=== PATIENT | male | born 1940 | race Caucasian/White ===

== ENCOUNTER 2016-12-13 13:17 | Emergency (ER) | payer OTHER ==
[2016-12-13] MEDS ORDERED: IPRATROPIUM/ALBUTEROL 3 ML VIAL NEB ONE ×2 (13:32→14:59)
[2016-12-13 13:34] VITALS: TEMP 99.4
--- NOTE | 2016-12-13 14:35 | RAD ---
Study: Frontal and Lateral Views of the Chest. Indication: sob Comparison: January 25, 2016. Impression: Heart size normal. Atherosclerosis aorta. Mild basilar atelectasis. Emphysema. 7 mm pulmonary nodule in the right upper lung. Correlation with nonemergent CT chest recommended. No pleural effusion or pneumothorax. Osteopenia. If this is a new finding, DEXA scan recommended as well as evaluation for possible osteoporosis treatment. Electronically signed by: Wenceslao Rivas MD 12/13/2016 2:34 PM CDT
--- NOTE | 2016-12-13 15:56 | US ---
Study: Left lower extremity venous Doppler sonogram. Indication: sob, new le edema Technical: Multiplanar grayscale and Doppler sonographic images of the deep veins of the left lower extremity obtained. Findings: There is no sonographic evidence of deep venous thrombosis. The deep veins of the left lower extremity compress normally and have appropriate duplex waveforms. Normal flow augmentation is noted as well. Conclusion: 1. No sonographic evidence of deep venous thrombosis of the left lower extremity. Electronically signed by: Wenceslao Rivas MD 12/13/2016 3:56 PM CDT
--- NOTE | 2016-12-13 15:56 | US ---
Study: Right lower extremity venous Doppler sonogram. Indication: sob, new le edema Technical: Multiplanar grayscale and Doppler sonographic images of the deep veins of the right lower extremity obtained. Findings: There is no sonographic evidence of deep venous thrombosis. The deep veins of the right lower extremity compress normally and have appropriate duplex waveforms. Normal flow augmentation is noted as well. Small 3.7 cm popliteal cyst noted. Conclusion: No sonographic evidence of deep venous thrombosis of the right lower extremity. Electronically signed by: Wenceslao Rivas MD 12/13/2016 3:55 PM CDT
--- NOTE | 2016-12-13 17:08 | ED.PDOC ---
History of Present Illness - General Chief Complaint: Respiratory Problem Stated Complaint: shortness of breath Time Seen by Provider: 12/13/16 13:23 Source: patient, family Exam Limitations: no limitations - History of Present Illness Initial Comments: The patient is a 76-year-old male presenting to the emergency room secondary to shortness of breath for the last 24 hours. The patient does have some audible wheezes bilaterally. He does have COPD. He also has sleep apnea which is not wearing his BiPAP. He does have some increased swelling to his right lower extremity over the last couple of days. His daughter is here to give additional information. He has not had any fevers. He is 97% on room air while awake. No respiratory distress currently. No chest pain. Timing/Duration: 24 hours Severity: moderate Improving Factors: nothing Worsening Factors: nothing Associated Symptoms: malaise, shortness of breath Allergies/Adverse Reactions: Allergies Morphine Allergy (Verified 12/13/16 13:31) only IV form causes adverse reaction, increased confusion Home Medications: Ambulatory Orders Aspirin [Aspirin EC Low Dose] 81 mg PO BEDTIME 01/24/16 Cholecalciferol [Vitamin D3] 1,000 unit PO BEDTIME 01/24/16 Furosemide Tab [Lasix Tab] 40 mg PO DAILY 01/24/16 Gabapentin [Neurontin] 300 mg PO TID 01/24/16 Multiple Vitamins W/ Minerals [Mens 50+ Advanced] 1 cap PO BEDTIME 01/24/16 Potassium Chloride [Potassium Chloride ER] 10 meq PO DAILY 01/24/16 Ropinirole Hydrochloride [Requip] 1 mg PO BEDTIME 01/24/16 Morphine Sulfate [Ms Contin] 15 mg PO BID #30 tab 01/25/16 Tamsulosin HCl [Flomax] 0.4 mg PO BEDTIME #30 cap 01/25/16 Duoneb 1 each INH Q6H PRN 12/13/16 Oxycodone HCl 10 mg PO QID PRN 12/13/16 Review of Systems - Review of Systems Review of Systems: 12/13/16 17:08 for new symptoms only Constitutional: States: no symptoms reported EENTM: States: no symptoms reported Respiratory: States: cough, short of breath, wheezing Cardiology: States: no symptoms reported Gastrointestinal/Abdominal: States: no symptoms reported Genitourinary: States: no symptoms reported Musculoskeletal: States: no symptoms reported Skin: States: no symptoms reported Neurological: States: no symptoms reported Endocrine: States: no symptoms reported All other Systems: No Change from Baseline Past Medical History (General) - Patient Medical History Hx Stroke: No Hx of COPD: Yes Hx Congestive Heart Failure: No Hx Pacemaker: No Hx Hypertension: Yes Hx Diabetes: No Hx Cancer: Yes - prostate Hx Hepatitis C: No Hx MRSA: No Surgical History: other - Vaccination History Hx Tetanus, Diphtheria Vaccination: No Hx Influenza Vaccination: Yes - 2015 Hx Pneumococcal Vaccination: Yes - Social History Hx Tobacco Use: Yes Cigarettes Packs Per Day: 2 Hx Chewing Tobacco Use: Yes Hx Alcohol Use: Yes - daily Hx Substance Use: No Hx Substance Use Treatment: No Hx Depression: No Hx Physical Abuse: No Hx Emotional Abuse: No Hx Suspected Abuse: No - Activities of Daily Living Hospice Agency (if applicable):: None - Female History Patient is a Female of Child Bearing Age (10 -59 yrs old): No Patient : No Family Medical History - Family History Mother Family History: Unknown Living Status: Physical Exam - Physical Exam General Appearance: Alert, Comfortable, No apparent distress Eye Exam: bilateral normal Ears, Nose, Throat: normal ENT inspection, normal pharynx, other - hearing is chronically decreased bilaterally Neck: non-tender, other - the patient has significant scoliosis limited motion of the neck. Respiratory: chest non-tender, no respiratory distress, no accessory muscle use , wheezing - diffusewith mild decreased air movement Cardiovascular/Chest: normal peripheral pulses, regular rate, rhythm Peripheral Pulses: radial,right: 2+, radial,left: 2+, dorsalis pedis,right: 2+, dorsalis pedis,left: 2+, posterior tibialis,right: 2+, posterior tibialis,left: 2+ Gastrointestinal/Abdominal: non tender, soft Rectal Exam: deferred Back Exam: normal inspection, no CVA tenderness, no vertebral tenderness Extremity: normal range of motion, non-tender, pedal edema - . Right lower extremity 1+ Neurologic: portable trackman II-XII nml as tested, alert, normal mood/affect, oriented x 3 Skin Exam: normal color Comments: Vital Signs - 24 hr 12/13/16 12/13/16 12/13/16 13:22 13:31 13:57 Temperature 99.4 F Pulse Rate 64 Pulse Rate [ 65 pulse ox] Respiratory 20 20 16 Rate Blood Pressure 132/62 [Left Arm] O2 Sat by Pulse 97 95 Oximetry 12/13/16 12/13/16 15:00 15:40 Temperature Pulse Rate 67 Pulse Rate [ 57 L pulse ox] Respiratory 20 20 Rate Blood Pressure 144/74 [Left Arm] O2 Sat by Pulse 100 98 Oximetry Progress - Progress Progress: 12/13/16 17:12 the patient is a 76-year-old male presenting to the emergency room secondary to dyspnea. He appears to be a mild acute COPD exacerbation. Oxygen saturations are doing well. He has responded nicely to DuoNeb treatments. The patient should increase his DuoNeb treatments to one in the morning one midday and 1 before bed. Additionally the patient does need to start using his BiPAP for his obstructive sleep apnea. It is likely that the swelling that he is having in his extremities is due to his noncompliance. He may need to coordinate further management of this with his primary care doctor. ER warnings were given for any significant worsening. No evidence found to support acute infection at this time. He should follow-up with his primary care doctor early next week. - Results/Orders Results/Orders: Laboratory Tests 12/13/16 12/13/16 12/13/16 13:50 13:50 13:50 WBC 7.6 RBC 3.39 L Hgb 11.3 L Hct 33.7 L MCV 99.3 H MCH 33.3 H MCHC 33.5 RDW 13.4 Plt Count 342 MPV 7.0 L Absolute Neuts (auto) 4.80 Absolute Lymphs (auto) 1.20 Absolute Monos (auto) 1.10 H Absolute Eos (auto) 0.40 Absolute Basos (auto) 0.10 Neutrophils % 62.7 Lymphocytes % 16.4 L Monocytes % 14.2 H Eosinophils % 5.6 H Basophils % 1.1 PT 11.7 INR 1.040 PTT (SP) 26.7 D-Dimer, Quantitative 502 H* Sodium 131 L Potassium 4.0 Chloride 98 L Carbon Dioxide 25 Anion Gap 12.0 BUN 17 Creatinine 1.28 BUN/Creatinine Ratio 13.3 Random Glucose 106 H Serum Osmolality 264.6 L Calcium 9.2 Magnesium 2.0 Total Bilirubin 0.7 AST 22 ALT 13 Alkaline Phosphatase 59 Creatine Kinase 110 CK-MB (CK-2) 3.4 CK-MB (CK-2) % Not Reportable Troponin I < 0.02 B-Natriuretic Peptide 74.4 Serum Total Protein 6.5 Albumin 3.9 Globulin 2.6 Albumin/Globulin Ratio 1.5 TSH 0.65 Urine Color Urine Appearance Urine pH Ur Specific [place] Urine Protein Urine Glucose (UA) Urine Ketones Urine Blood Urine Nitrite Urine Bilirubin Urine Urobilinogen Ur Leukocyte Esterase Urine RBC Urine WBC Ur Epithelial Cells Urine Bacteria 12/13/16 16:31 WBC RBC Hgb Hct MCV MCH MCHC RDW Plt Count MPV Absolute Neuts (auto) Absolute Lymphs (auto) Absolute Monos (auto) Absolute Eos (auto) Absolute Basos (auto) Neutrophils % Lymphocytes % Monocytes % Eosinophils % Basophils % PT INR PTT (SP) D-Dimer, Quantitative Sodium Potassium Chloride Carbon Dioxide Anion Gap BUN Creatinine BUN/Creatinine Ratio Random Glucose Serum Osmolality Calcium Magnesium Total Bilirubin AST ALT Alkaline Phosphatase Creatine Kinase CK-MB (CK-2) CK-MB (CK-2) % Troponin I B-Natriuretic Peptide Serum Total Protein Albumin Globulin Albumin/Globulin Ratio TSH Urine Color Yellow Urine Appearance Clear Urine pH 6.0 Ur Specific [place] 1.010 Urine Protein Negative Urine Glucose (UA) Negative Urine Ketones Negative Urine Blood Trace-intact H Urine Nitrite Negative Urine Bilirubin Negative Urine Urobilinogen 0.2 Ur Leukocyte Esterase Negative Urine RBC 0-1 Urine WBC 0 Ur Epithelial Cells 0 Urine Bacteria 0 bilateral lower extremity venous Dopplers are negative for any evidence of DVT. He does have a popliteal cyst. Chest x-ray shows some atelectasis on the right. No evidence of pneumonia or significant effusion. No evidence of overt fluid overload. EKG shows normal sinus rhythm with first-degree AV block. No acute ST segment changes worrisome for ischemia. Heart rate is 61 bpm. Normal QTc interval. Departure - Departure Clinical Impression: Acute bronchitis with COPD, Noncompliance with CPAP treatment Disposition: Discharge to Home or Self Care Condition: Fair Departure Forms: ED Discharge - Pt. Copy, Patient Portal Self Enrollment Instructions: DI for Chronic Obstructive Pulmonary Disease Diet: regular diet Activity: increase activity as tolerated Referrals: JESUS PATEL [Primary Care Provider] - 1-5 Days Home Medications: Ambulatory Orders Aspirin [Aspirin EC Low Dose] 81 mg PO BEDTIME 01/24/16 Cholecalciferol [Vitamin D3] 1,000 unit PO BEDTIME 01/24/16 Furosemide Tab [Lasix Tab] 40 mg PO DAILY 01/24/16 Gabapentin [Neurontin] 300 mg PO TID 01/24/16 Multiple Vitamins W/ Minerals [Mens 50+ Advanced] 1 cap PO BEDTIME 01/24/16 Potassium Chloride [Potassium Chloride ER] 10 meq PO DAILY 01/24/16 Ropinirole Hydrochloride [Requip] 1 mg PO BEDTIME 01/24/16 Morphine Sulfate [Ms Contin] 15 mg PO BID #30 tab 01/25/16 Tamsulosin HCl [Flomax] 0.4 mg PO BEDTIME #30 cap 01/25/16 Duoneb 1 each INH Q6H PRN 12/13/16 Oxycodone HCl 10 mg PO QID PRN 12/13/16 Additional Instructions: the patient is a 76-year-old male presenting to the emergency room secondary to dyspnea. He appears to be a mild acute COPD exacerbation. Oxygen saturations are doing well. He has responded nicely to DuoNeb treatments. The patient should increase his DuoNeb treatments to one in the morning one midday and 1 before bed. Additionally the patient does need to start using his BiPAP for his obstructive sleep apnea. It is likely that the swelling that he is having in his extremities is due to his noncompliance. He may need to coordinate further management of this with his primary care doctor. ER warnings were given for any significant worsening. No evidence found to support acute infection at this time. He should follow-up with his primary care doctor early next week.
[2016-12-13 17:31] VITALS: BP 143/64; O2SAT 95
== END 2016-12-13 17:31 | disposition home or self-care (01) ==
LOC: ER 13:17
DX: J44.0 Chronic obstructive pulmonary disease with (acute) lower respiratory infection (principal); J20.9 Acute bronchitis, unspecified; Z91.14 Patient's other noncompliance with medication regimen; G47.30 Sleep apnea, unspecified; Z88.6 Allergy status to analgesic agent; Z79.82 Long term (current) use of aspirin; Z79.899 Other long term (current) drug therapy; I10 Essential (primary) hypertension; Z85.46 Personal history of malignant neoplasm of prostate; F17.210 Nicotine dependence, cigarettes, uncomplicated; F17.220 Nicotine dependence, chewing tobacco, uncomplicated
CPT/HCPCS: 36415; 71020; 80053; 81001; 82550; 82553; 83735; 83880; 84443; 84484; 85025; 85379; 85610; 85730; 93005; 93971; 94640; J7620

== ENCOUNTER 2016-12-15 10:53 | Inpatient (IN) | payer OTHER ==
[2016-12-15] MEDS ORDERED: SODIUM CHLORIDE 0.9% 1000ML 1,000 ML IVS PRN (12:23)
[2016-12-15] MEDS ORDERED: fentaNYL CITRATE INJ 50 MCG/ML AMP IV ONE (12:26)
--- NOTE | 2016-12-15 12:30 | ED.PDOC ---
History of Present Illness - General Chief Complaint: General Stated Complaint: Increased weakness Time Seen by Provider: 12/15/16 12:08 Source: patient, family Exam Limitations: physical impairment - History of Present Illness Initial Comments: PT IS A 76 YO MALE BROUGHT IN BY FAMILY MEMBERS FOR GENERALIZED WEAKNESS AND WORSENING LOWER BACK PAIN. FAMILY ALSO REPORTS FEVER AND PRODUCTIVE COUGH FOR THE PAST FEW DAYS. PT WAS SEEN IN THIS ED A FEW DAYS AGO AND WAS DIAGNOSED WITH BRONCHITIS. PT HAS GOTTEN PROGRESSIVELY WEAKER SINCE THEN AND IS NOW UNABLE TO AMBULATE. PT NORMALLY IS AMBULATORY AND DRIVES. PT NOW COMPLAINS OF LOW BACK PAIN THAT IS MORE INTENSE THAN HIS CHRONIC BACK PAIN WHICH IS USUALLY CONTROLLED WITH PO MEDS AT HOME. Timing/Duration: getting worse Severity: severe Improving Factors: immobilization Worsening Factors: movement Associated Symptoms: cough, fever/chills, malaise, weakness, other - BACK PAIN Allergies/Adverse Reactions: Allergies Morphine Allergy (Verified 12/13/16 13:31) only IV form causes adverse reaction, increased confusion Home Medications: Ambulatory Orders Aspirin [Aspirin EC Low Dose] 81 mg PO BEDTIME 01/24/16 Cholecalciferol [Vitamin D3] 1,000 unit PO BEDTIME 01/24/16 Furosemide Tab [Lasix Tab] 40 mg PO DAILY 01/24/16 Gabapentin [Neurontin] 300 mg PO TID 01/24/16 Multiple Vitamins W/ Minerals [Mens 50+ Advanced] 1 cap PO BEDTIME 01/24/16 Potassium Chloride [Potassium Chloride ER] 10 meq PO DAILY 01/24/16 Ropinirole Hydrochloride [Requip] 1 mg PO BEDTIME 01/24/16 Morphine Sulfate [Ms Contin] 15 mg PO BID #30 tab 01/25/16 Tamsulosin HCl [Flomax] 0.4 mg PO BEDTIME #30 cap 01/25/16 Duoneb 1 each INH Q6H PRN 12/13/16 Oxycodone HCl 10 mg PO QID PRN 12/13/16 Review of Systems - Review of Systems Constitutional: Denies: chills, fever EENTM: Denies: nose congestion, throat pain Respiratory: States: see HPI, cough. Denies: short of breath Cardiology: Denies: chest pain, palpitations Gastrointestinal/Abdominal: Denies: abdominal pain, diarrhea, nausea Genitourinary: Denies: frequency, hematuria Musculoskeletal: States: see HPI, back pain, muscle pain Skin: Denies: lesions, rash Neurological: Denies: headache, paresthesia Endocrine: Denies: intolerance to cold, intolerance to heat Hematologic/Lymphatic: Denies: anemia, easy bleeding Past Medical History (General) - Patient Medical History Hx Stroke: No Hx of COPD: No Hx Congestive Heart Failure: No Hx Pacemaker: No Hx Hypertension: Yes Hx Diabetes: No Hx Cancer: Yes - prostate Hx Hepatitis C: No Hx MRSA: No - Vaccination History Hx Tetanus, Diphtheria Vaccination: No Hx Influenza Vaccination: Yes - 2015 Hx Pneumococcal Vaccination: Yes - Social History Hx Tobacco Use: Yes Hx Chewing Tobacco Use: Yes Hx Alcohol Use: Yes - daily Hx Substance Use: No Hx Substance Use Treatment: No Hx Depression: No Hx Physical Abuse: No Hx Emotional Abuse: No Hx Suspected Abuse: No - Female History Patient : No Family Medical History - Family History Mother Family History: Unknown Living Status: Physical Exam - Physical Exam General Appearance: Comfortable, Frail, No apparent distress, Other - SOMNOLENT BUT EASILY ARROUSED Eye Exam: bilateral normal Ears, Nose, Throat: hearing grossly normal, normal ENT inspection Neck: normal inspection Respiratory: no accessory muscle use, rhonchi Cardiovascular/Chest: regular rate, rhythm, no edema, no murmur Gastrointestinal/Abdominal: non tender, soft Back Exam: no vertebral tenderness, other - DIFFUSE LUMBAR TENDERNESS Extremity: normal inspection, no pedal edema Neurologic: normal mood/affect - CONFUSED AT TIMES, MOVING ALL EXTREMITIES, STRENGTH SYMETRIC Skin Exam: warm/dry, pallor Progress - Progress Progress: 12/15/16 14:09 PT RESTING COMFORTABLY AFTER IV FENTANYL, LABS AND CXR FINDINGS DISCUSSED. DISCUSSED PLAN TO ADMIT FOR IV FLUIDS, PAIN CONTROL, AND IV ANTIBIOTICS FOR RLL PNEUMONIA. PT UNDERSTANDS AND AGREES. - Results/Orders Results/Orders: 12/15/16 12:23 Sodium Chloride 0.9% 1000ML [Ns 1000 ml] 1,000 ml IVS .QD SPUTUM CULTURE Stat 12/15/16 12:24 EKG Assessment ONCE 12/15/16 12:25 Pulse Ox Stat 12/15/16 12:26 Pulse Oximetry Assessment DAILY 12/15/16 12:27 UA [URINALYSIS] Stat 12/15/16 12:30 EKG STAT 12/15/16 13:11 BLOOD CULTURE Stat 12/15/16 13:56 cefTRIAXone SODIUM [Rocephin] 1 gm Sodium Chl 0.9% 50Ml Min-Bag+ [NS 50ml MINI -BAG+] 50 ml IVPB ONCE 12/15/16 13:57 Azithromycin IV [Zithromax IV] 500 mg Sodium Chloride 0.9% 250Ml [NS 250ml] 250 ml IVPB ONCE Laboratory Results - last 24 hr 12/15/16 12/15/16 12/15/16 12:23 12:23 12:23 WBC 10.8 RBC 3.51 L Hgb 11.8 L Hct 34.9 L MCV 99.4 H MCH 33.6 H MCHC 33.8 RDW 13.5 Plt Count 329 MPV 7.5 Absolute Neuts (auto) 8.70 H Absolute Lymphs (auto) 0.90 L Absolute Monos (auto) 1.10 H Absolute Eos (auto) 0.10 Absolute Basos (auto) 0.10 Neutrophils % 79.9 H Lymphocytes % 8.2 L Monocytes % 10.0 H Eosinophils % 0.7 L Basophils % 1.2 pCO2 pO2 HCO3 ABG pH ABG O2 Saturation ABG Base Excess ABG Deoxyhemoglobin Oxyhemoglobin % Carboxyhemoglobin % Methemoglobin % Sat Calc Total Hemoglobin Sodium 134 L Potassium 4.2 Chloride 100 L Carbon Dioxide 24 Anion Gap 14.2 BUN 20 H Creatinine 1.32 H BUN/Creatinine Ratio 15.2 Random Glucose 106 H Serum Osmolality 271.3 L Lactic Acid 1.0 Calcium 9.4 Total Bilirubin 0.8 AST 21 ALT 14 Alkaline Phosphatase 70 Creatine Kinase CK-MB (CK-2) CK-MB (CK-2) % Troponin I B-Natriuretic Peptide 52.6 Serum Total Protein 6.9 Albumin 4.0 Globulin 2.9 Albumin/Globulin Ratio 1.4 12/15/16 12/15/16 12:26 13:40 WBC RBC Hgb Hct MCV MCH MCHC RDW Plt Count MPV Absolute Neuts (auto) Absolute Lymphs (auto) Absolute Monos (auto) Absolute Eos (auto) Absolute Basos (auto) Neutrophils % Lymphocytes % Monocytes % Eosinophils % Basophils % pCO2 31 L pO2 100 HCO3 23.2 ABG pH 7.490 H ABG O2 Saturation 99.3 H ABG Base Excess 0.7 ABG Deoxyhemoglobin 0.7 Oxyhemoglobin % 95.0 Carboxyhemoglobin % 2.6 H Methemoglobin % Sat 1.7 H Calc Total Hemoglobin 9.8 L Sodium Potassium Chloride Carbon Dioxide Anion Gap BUN Creatinine BUN/Creatinine Ratio Random Glucose Serum Osmolality Lactic Acid Calcium Total Bilirubin AST ALT Alkaline Phosphatase Creatine Kinase 83 CK-MB (CK-2) 1.8 CK-MB (CK-2) % Not Reportable Troponin I < 0.02 B-Natriuretic Peptide Serum Total Protein Albumin Globulin Albumin/Globulin Ratio Departure - Departure Clinical Impression: Pneumonia, Dehydration, Acute exacerbation of chronic low back pain, Generalized muscle weakness Time of Disposition: 14:11 Disposition: Admit Patient Condition: Fair Departure Forms: ED Discharge - Pt. Copy, Patient Portal Self Enrollment Referrals: JESUS PATEL [Primary Care Provider] - 1-2 Weeks Home Medications: Ambulatory Orders Aspirin [Aspirin EC Low Dose] 81 mg PO BEDTIME 01/24/16 Cholecalciferol [Vitamin D3] 1,000 unit PO BEDTIME 01/24/16 Furosemide Tab [Lasix Tab] 40 mg PO DAILY 01/24/16 Gabapentin [Neurontin] 300 mg PO TID 01/24/16 Multiple Vitamins W/ Minerals [Mens 50+ Advanced] 1 cap PO BEDTIME 01/24/16 Potassium Chloride [Potassium Chloride ER] 10 meq PO DAILY 01/24/16 Ropinirole Hydrochloride [Requip] 1 mg PO BEDTIME 01/24/16 Morphine Sulfate [Ms Contin] 15 mg PO BID #30 tab 01/25/16 Tamsulosin HCl [Flomax] 0.4 mg PO BEDTIME #30 cap 01/25/16 Duoneb 1 each INH Q6H PRN 12/13/16 Oxycodone HCl 10 mg PO QID PRN 12/13/16 Decision To Admit - Decistion To Admit Decision to Admit Reason: Admit from ER Decision to Admit Date: 12/15/16 Decision to Admit Time: 14:11
--- NOTE | 2016-12-15 12:45 | RAD ---
EXAM DESCRIPTION: Chest,1 View CLINICAL HISTORY: COUGH/FEVER COMPARISON: December 13, 2016 IMPRESSION: Single AP portable upright view of the chest shows cardiac silhouette and pulmonary vasculature to be within normal limits. Lungs are normally aerated to mildly hyperinflated. Linear interstitial thickening in the right lower lobe is again seen slightly improved from previous suggesting atelectasis or interstitial infiltrate. Continued follow-up until resolution is recommended.. Question small right pleural effusion similar to previous exam. The left lung is clear. 7 mm pulmonary nodule in the right upper lobe is again seen. Recommend further evaluation with CT imaging. Electronically signed by: Steve Carroll MD 12/15/2016 12:43 PM CDT
[2016-12-15] MEDS ORDERED: cefTRIAXone SODIUM 1 GM in SODIUM CHL 0.9% 50ML MIN-BAG+ 50 ML IVPB ONE (13:56)
[2016-12-15] MEDS ORDERED: AZITHROMYCIN IV 500 MG in SODIUM CHLORIDE 0.9% 250ML 250 ML IVPB ONE (13:57)
[2016-12-15] MEDS ORDERED: SODIUM CHL 0.9% 50ML MIN-BAG+ 50 ML IVPB ONE (14:24)
[2016-12-15] MEDS ORDERED: cefTRIAXone SODIUM 1 GM VIAL ONE (14:24)
[2016-12-15] MEDS ORDERED: SODIUM CHLORIDE 0.9% 250ML 250 ML ONE (14:25)
[2016-12-15] MEDS ORDERED: AZITHROMYCIN IV 500 MG VIAL IVPB ONE (14:25)
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
[2016-12-15] MEDS ORDERED: ACETAMINOPHEN 325 MG TAB PO PRN (17:27)
[2016-12-15] MEDS ORDERED: SODIUM CHLORIDE 0.9% (FLUSH) 10 ML SYG IV PRN (17:27)
[2016-12-15] MEDS ORDERED: DEXTROSE 50% 25 GM/50 ML SYG IV PRN (17:27)
[2016-12-15] MEDS ORDERED: GLUCAGON INJ 1 MG VIAL SUBCU PRN (17:27)
[2016-12-15] MEDS ORDERED: ONDANSETRON INJ 4 MG/2 ML VIAL IV PRN (17:27)
[2016-12-15] MEDS ORDERED: ALBUTEROL SULFATE 2.5 MG/3 ML VIAL NEB PRN (17:27)
[2016-12-15] MEDS ORDERED: methylPREDNISolone SODIUM SUC 125 MG/2 ML VIAL IV ONE ×2 (17:38→18:00)
[2016-12-15] MEDS: IV SET AND CAP CHANGE INJ INJ SCH (17:47)
[2016-12-15] MEDS: KCL 20 MEQ/NS 1,000 ML IVS PRN (17:59)
--- NOTE | 2016-12-15 19:12 | CT ---
EXAM DESCRIPTION: Chest w/Contrast CLINICAL HISTORY: pulmonary nodule, exacerbation COPD COMPARISON: None Available. TECHNIQUE: Contiguous axial images of the chest were obtained from the thoracic inlet up to the upper abdomen followed by reconstruction images. This exam was performed according to our departmental dose-optimization program, which includes automated exposure control, adjustment of the mA and/or kV according to patient size and/or use of iterative reconstruction technique. FINDINGS: The aorta is of normal contour and tapering. There are coronary arterial calcifications. There is a calcified pulmonary nodule within the right lower lung and left upper lung. There is a noncalcified pulmonary nodule within the right upper lung measuring approximately 5.4 x 4.3 mm. There is a small right pleural fluid collection. Increased opacity in the dependent portion of the right lung may represent atelectasis. There is no pericardial fluid collection. There is no parenchymal consolidation or pneumothorax. There are subcentimeter left renal cysts. IMPRESSION: Small right pleural fluid collection. Increased opacity in the right lower lung may represent atelectasis. 5 mm noncalcified right pulmonary nodule. 2017 Fleischner Society Recommendations for Single Solid Lung Nodule Follow-Up based on size (average of long- and short-axis diameters) <6 mm Low-Risk Patient: No routine follow-up <6 mm High-Risk Patient: Optional CT at 12 months Electronically signed by: Niles Adam MD 12/15/2016 7:10 PM CDT
--- NOTE | 2016-12-15 19:16 | CT ---
EXAM DESCRIPTION: CT Lumbar Spine CLINICAL HISTORY: severe Lumbar back pain COMPARISON: None Available. TECHNIQUE: Contiguous axial images of lumbar spine were obtained followed by reconstruction images. This exam was performed according to our departmental dose-optimization program, which includes automated exposure control, adjustment of the mA and/or kV according to patient size and/or use of iterative reconstruction technique. FINDINGS: There is scoliosis and degenerative changes of the lumbar spine. There is evidence of prior lumbar fusion at the L4 and L5 vertebral body levels. There is atherosclerosis. There is neural foramina narrowing at L3-L4 due to osteophytic formation. There is a small right pleural fluid collection versus pleural thickening. IMPRESSION: Evidence of prior lumbar fusion. Scoliosis and diffuse degenerative changes of the lumbar spine. Electronically signed by: Niles Adam MD 12/15/2016 7:15 PM CDT
[2016-12-15] MEDS: IPRATROPIUM/ALBUTEROL 3 ML VIAL INH SCH (19:36)
[2016-12-15] MEDS ORDERED: [UNRECOGNIZED DRUG - OTHER] PO SCH (21:00)
[2016-12-15] MEDS ORDERED: MULTIPLE VITAMINS PO SCH (21:00)
[2016-12-15] MEDS ORDERED: MINERALS PO SCH (21:00)
[2016-12-15] MEDS ORDERED: NON-FORMULARY MEDICATION 1 EA MIS (Cholecalciferol [Vitamin D3] 1,000 UNIT) PO SCH (21:00)
[2016-12-15] MEDS ORDERED: MULTIPLE VITAMINS W/ MINERALS 1 EA TAB ONE (21:04)
[2016-12-15] MEDS ORDERED: CHOLECALCIFEROL 2,000 IU TAB PO ONE (21:04)
[2016-12-15] MEDS ORDERED: ALPRAZolam 0.25 MG TAB ONE (21:05)
[2016-12-15] MEDS: TAMSULOSIN 0.4 MG CAP PO SCH (21:07)
[2016-12-15] MEDS: PRIMIDONE 50 MG TAB PO SCH (21:08)
[2016-12-15] MEDS: ASPIRIN EC 81 MG TAB PO SCH (21:08)
[2016-12-15] MEDS: GABAPENTIN 100 MG CAP PO SCH (21:08)
[2016-12-15] MEDS: ALPRAZolam 0.5 MG TAB PO SCH (21:10)
[2016-12-15] MEDS: ENOXAPARIN SODIUM 40 MG/0.4 ML SYG SUBCU SCH (22:04)
[2016-12-15] MEDS: INSULIN LISPRO 100 UNITS/ML PEN SUBCU SCH (22:04)
[2016-12-16] MEDS: methylPREDNISolone SODIUM SUC 125 MG/2 ML VIAL IV SCH ×4 (00:36→18:24)
[2016-12-16] MEDS: PANTOPRAZOLE SODIUM IV 40 MG VIAL IV SCH (05:57)
[2016-12-16] MEDS: GABAPENTIN 100 MG CAP PO SCH ×2 (06:36→19:29)
--- NOTE | 2016-12-16 07:03 | RAD ---
Procedure: XR CHEST 1 VIEW Exam Date: 12/16/2016 Ordering Provider: Yonathan Ross NP Clinical Indication: Pneumonia Comparison: 12/15/2016 Findings: Cardiomediastinal silhouette is stable. Focal lung consolidation: Right basilar subsegmental atelectasis and/or infiltrate. Stable 6 mm right upper lobe nodule. Left lung remains clear. Pleural effusion: Small right pleural effusion. Pneumothorax: None Acute bony or soft tissue abnormality: None Impression: 1. Right basilar subsegmental atelectasis and/or infiltrate. 2. Small right pleural effusion. Electronically signed by: Celio Martinez MD 12/16/2016 7:01 AM CDT
[2016-12-16] MEDS: INSULIN LISPRO 100 UNITS/ML PEN SUBCU SCH ×4 (07:24→20:55)
[2016-12-16] MEDS: KCL 20 MEQ/NS 1,000 ML IVS PRN ×2 (07:57→23:36)
[2016-12-16] MEDS: MAGNESIUM HYDROXIDE 30 ML UD PO PRN (08:04)
[2016-12-16] MEDS ORDERED: IPRATROPIUM/ALBUTEROL 3 ML VIAL NEB ONE (08:37)
[2016-12-16] MEDS: IPRATROPIUM/ALBUTEROL 3 ML VIAL INH SCH (08:40)
[2016-12-16] MEDS ORDERED: SODIUM CHLORIDE 0.9% 250ML 250 ML ONE (08:44)
[2016-12-16] MEDS ORDERED: AZITHROMYCIN IV 500 MG VIAL IVPB ONE (08:45)
[2016-12-16] MEDS: POTASSIUM CHLORIDE 10 MEQ TAB PO SCH (08:51)
[2016-12-16] MEDS: MEGESTROL ACETATE 40 MG TAB PO SCH (08:51)
[2016-12-16] MEDS: NICOTINE PATCH 14 MG TD SCH (08:52)
[2016-12-16] MEDS: FUROSEMIDE 40 MG TAB PO SCH (08:52)
[2016-12-16] MEDS: AZITHROMYCIN IV 500 MG in SODIUM CHLORIDE 0.9% 250ML 250 ML IVPB SCH (08:52)
[2016-12-16] MEDS ORDERED: OMEPRAZOLE MAGNESIUM PO SCH (09:00)
[2016-12-16] MEDS: MORPHINE ER 15 MG TAB PO SCH ×3 (12:15→20:56)
[2016-12-16] MEDS: METHOCARBAMOL 750 MG TAB PO SCH ×2 (12:15→19:31)
[2016-12-16] MEDS: IPRATROPIUM/ALBUTEROL 3 ML VIAL NEB SCH ×3 (15:45→19:50)
[2016-12-16] MEDS ORDERED: cefTRIAXone SODIUM 1 GM VIAL ONE (15:58)
[2016-12-16] MEDS ORDERED: SODIUM CHL 0.9% 50ML MIN-BAG+ 50 ML IVPB ONE (15:58)
[2016-12-16] MEDS: cefTRIAXone SODIUM 1 GM in SODIUM CHL 0.9% 50ML MIN-BAG+ 50 ML IVPB SCH (16:01)
--- NOTE | 2016-12-16 19:02 | PN ---
DATE: 12/16/16 SUPERVISING PHYSICIAN: Sylvester Norman M.D. SUBJECTIVE: The patient is much more alert this morning. He is up communicating with his family. He notes that he feels like he is breathing better than prior to admission. Continues to have significant lower back pain and weakness. He was seen by Physical Therapy this morning for evaluation and found to be significantly deconditioned. OBJECTIVE: VITAL SIGNS: He remains afebrile with T max of 98.7, pulse 57, blood pressure 121/52, respirations 20, satting 98% on room air. I's and O's show a positive balance of 2379 with 2790 in, 400 out. Although he has had multiple voids, I do not think they have been measured. Weight is 68.7 kg which is actually down from admission of 68.8 kg. CHEST: Lung sounds are diminished towards the posterolateral aspect on the right side with just very faint rhonchi but no wheezing noted this morning. Lung sounds on the left are fairly clear, but again diminished towards the bases. HEART: Regular rate and rhythm. ABDOMEN: Soft, non-tender. Positive bowel sounds. EXTREMITIES: No clubbing, cyanosis or edema. NEUROLOGIC: He is alert and oriented times three. LABORATORY: White count remains within normal limits at 8.2. Hemoglobin is stable at 11.2, hematocrit 33.3, platelet count 294,000. Differential continues to show a left shift. Chemistries now show normal electrolytes with normal chloride 104 with sodium 136, potassium 4.7, BUN is still slightly elevated at 21, creatinine 1.27, glucose 141 to 167, magnesium 2.1 yesterday, calcium is 8.9 today. MICROBIOLOGY: Sputum culture is still pending. Blood cultures show no growth at 24 hours. RADIOLOGY: Chest x-ray this morning single view per radiology interpretation shows a right basilar subsegmental atelectasis and/or infiltrate and a small right pleural effusion. ASSESSMENT: 1. Chronic obstructive pulmonary disease with an exacerbation of acute bronchitis with early development of pneumonia right lower lobe community acquired with the patient on parenteral antibiotics and aggressive pulmonary hygiene with the patient having failed to respond to outpatient treatment plan. 2. Respiratory alkalosis on admission with partial compensation with noted hypochloremia secondary to worsening exacerbation of chronic obstructive pulmonary disease with bronchitis and right lower lobe pneumonia showing normalization of his chloride today after IV fluids. 3. Renal insufficiency secondary to prerenal azotemia state from dehydration showing improvement after IV therapy. 4. Moderate dehydration as noted by elevated BUN and creatinine showing improvement after IV therapy. 5. Chronic tobacco abuse. 6. Chronic lower back pain on multiple opioids. 7. History of prostatic cancer having been treated with cryotherapy in 2009. 8. Hypertension. 9. History of chronic scoliosis, symptomatic. 10. Severe generalized weakness secondary to worsening bronchitis and developing community-acquired pneumonia on the right side in the presence of initial respiratory alkalosis in a chronic smoker requiring ongoing physical therapy. 11. Right upper lobe pulmonary nodule as noted on radiographic studies that measured 7 mm in diameter followed-up by CT of the chest noted to be a 5 mm noncalcified right pulmonary nodule with recommendations per radiology of a less than 6 mm low risk patient. No routine followup, however the patient will need continued followup given his advanced COPD and past smoking history. 12. Severe back pain, chronic with exacerbation with pain resulting in the patient having severe weakness and deconditioning with no evidence of acute compression fractures or other abnormalities on the lower back on recent CT scan. PLAN: The patient will continue with parenteral antibiotics today to include Rocephin and Azithromycin. Again awaiting sputum cultures. He will continue with aggressive pulmonary hygiene. He did have a Physical Therapy evaluation and they recommend the patient have ongoing physical therapy as he is a high risk for falls and severely weak in need of a greater deal of assistance, even transferring from supine position to standing position. Will continue with pain management as his normal pain regimen and encourage that he utilize his BiPAP at night. Will anticipate at least an additional 48 hours of antibiotic therapy and close clinical monitoring with consideration for possible admission to Swing Bed once medically stable for his severe deconditioning, again pending additional further Physical Therapy evaluation. Until then, will continue to monitor the patient closely and treat appropriately. Once the patient is discharged, he will again need close followup with Dr. Ortega as well as his pain management, Dr. Hernandez at the [facility] in [place]. #[phone] MTDD
[2016-12-16] MEDS ORDERED: MULTIPLE VITAMINS W/ MINERALS 1 EA TAB ONE (19:08)
[2016-12-16] MEDS ORDERED: CHOLECALCIFEROL 2,000 IU TAB PO ONE (19:09)
[2016-12-16] MEDS: ALPRAZolam 0.5 MG TAB PO SCH (19:26)
[2016-12-16] MEDS: PRIMIDONE 50 MG TAB PO SCH (19:27)
[2016-12-16] MEDS: MULTIPLE VITAMINS W/ MINERALS 1 EA TAB PO SCH (19:27)
[2016-12-16] MEDS: TAMSULOSIN 0.4 MG CAP PO SCH (19:28)
[2016-12-16] MEDS: CHOLECALCIFEROL 2,000 IU TAB PO SCH (19:28)
[2016-12-16] MEDS: ENOXAPARIN SODIUM 40 MG/0.4 ML SYG SUBCU SCH (19:29)
[2016-12-16] MEDS: ASPIRIN EC 81 MG TAB PO SCH (19:29)
[2016-12-17] MEDS: MAGNESIUM HYDROXIDE 30 ML UD PO PRN (05:18)
[2016-12-17] MEDS: PANTOPRAZOLE SODIUM IV 40 MG VIAL IV SCH (05:33)
[2016-12-17] MEDS: GABAPENTIN 100 MG CAP PO SCH ×2 (06:02→21:10)
[2016-12-17] MEDS ORDERED: SODIUM CHLORIDE 0.9% 250ML 250 ML ONE (07:06)
[2016-12-17] MEDS ORDERED: AZITHROMYCIN IV 500 MG VIAL IVPB ONE (07:07)
--- NOTE | 2016-12-17 07:31 | RAD ---
PROCEDURE: XR CHEST 1 VIEW HISTORY: copd COMPARISON: 12/16/2016. TECHNIQUE: Single projection of the chest was done. FINDINGS: There are underlying changes of COPD. There is presence of mild right mid and lower lung zone infiltrate/atelectasis, with slight interval worsening in this finding since 12/16/2016 . Persistent blunting of the right CP angle may represent tiny stable right-sided pleural effusion/pleural thickening There are no pneumothoraces. The right lung apex is obscured by overlying soft tissues of the neck. The cardiomediastinal silhouette is stable. IMPRESSION: There are underlying changes of COPD. There is presence of mild right mid and lower lung zone infiltrate/atelectasis, with slight interval worsening in this finding since 12/16/2016 . Persistent blunting of the right CP angle may represent tiny stable right-sided pleural effusion/pleural thickening. Electronically signed by: Shakir Bass MD 12/17/2016 7:30 AM CDT Workstation: [id number]
[2016-12-17] MEDS: INSULIN LISPRO 100 UNITS/ML PEN SUBCU SCH ×4 (08:13→21:00)
[2016-12-17] MEDS: FUROSEMIDE 40 MG TAB PO SCH (08:14)
[2016-12-17] MEDS: MEGESTROL ACETATE 40 MG TAB PO SCH (08:14)
[2016-12-17] MEDS: METHOCARBAMOL 750 MG TAB PO SCH ×2 (08:14→21:09)
[2016-12-17] MEDS: NICOTINE PATCH 14 MG TD SCH (08:14)
[2016-12-17] MEDS: MORPHINE ER 15 MG TAB PO SCH ×3 (08:14→21:10)
[2016-12-17] MEDS: POTASSIUM CHLORIDE 10 MEQ TAB PO SCH (08:14)
[2016-12-17] MEDS: IPRATROPIUM/ALBUTEROL 3 ML VIAL NEB SCH ×3 (08:41→19:30)
[2016-12-17] MEDS: AZITHROMYCIN IV 500 MG in SODIUM CHLORIDE 0.9% 250ML 250 ML IVPB SCH (09:07)
--- NOTE | 2016-12-17 12:42 | PN ---
DATE: 12/17/16 SUPERVISING PHYSICIAN: Sylvester Norman M.D. SUBJECTIVE: The patient says he still feels poorly but his appetite has been well. He has been afebrile. He is still having some difficulty wearing his BiPAP at night and will likely need ongoing physical therapy as he is showing slow clinical improvement and has significant deconditioning;. OBJECTIVE: VITAL SIGNS: T max of 98.2, pulse 80, blood pressure 119/66, respirations 18, saturation 95% on room air. I's and O's show a positive balance of 2018 with 06049 in, 400 out. Weight 68.7 kg. CHEST: Lung are diminished towards the bases with just a very faint rhonchi heard on the right lateral posterior aspect but no wheezing. HEART: Regular rate and rhythm. ABDOMEN: Soft, non-tender. Positive bowel sounds. EXTREMITIES: No clubbing, cyanosis or edema. NEUROLOGIC: He is alert and oriented times three. LABORATORY: Chemistries show a low sodium of 132, potassium 4.9 with BUN of 28 , creatinine 1.14, glucoses have been from 133 to 248, calcium 8.4. RADIOLOGY: Chest x-ray single view today per radiology interpretation shows the presence of underlying changes of chronic obstructive pulmonary disease with mild right mid and lower lung zone infiltrate/atelectasis with slight interval worsening since admission on with persistent blunting of the right costovertebral angle with tiny right- sided pleural effusion and pleural thickening.. ASSESSMENT: 1. Chronic obstructive pulmonary disease with an exacerbation of acute bronchitis with development of right-sided pneumonia, community acquired with the patient on parenteral antibiotics and receiving aggressive pulmonary hygiene in a patient having failed to respond to outpatient treatment plan. 2. Respiratory alkalosis initially on admission with partial compensation as noted by hypochloremia secondary to worsening exacerbation of chronic obstructive pulmonary disease with bronchitis and right lower lobe pneumonia, community acquired showing normalization of his chloride since admission and IV fluids. 3. Renal insufficiency secondary to prerenal azotemia state showing improvement after IV therapy. 4. Mild hyponatremia secondary to underlying developing right lower lobe pneumonia requiring ongoing therapy. 5. Moderate dehydration as noted with an elevated BUN and creatinine showing improvement after IV therapy. 6. Chronic tobacco abuse. 7. Chronic lower back pain on multiple opioids and muscle relaxants. 8. History of prostatic cancer having been treated with cryotherapy in 2009. 9. Hypertension. 10. Severe scoliosis, symptomatic. 11. Severe generalized weakness secondary to worsening bronchitis and developing community-acquired pneumonia on the right side in the presence of initial respiratory alkalosis in a chronic smoker requiring ongoing physical therapy. 12. Right upper lobe pulmonary nodule noted on CT that measured 5 mm noncalcified requiring followup at discharge given the patient's advanced chronic obstructive pulmonary disease and past smoking history. 13. Severe back pain, chronic with exacerbation with pain resulting in patient having severe weakness and deconditioning with no evidence of acute compression fractures or other abnormalities on the lower back on recent CT scan. PLAN: Will continue with parenteral antibiotics today to include Rocephin and Azithromycin at this point as the patient is showing some clinical improvement. Will again await sputum cultures to target antibiotic therapy accordingly. Will continue with aggressive pulmonary hygiene and encourage the patient to be up to the bedside at lunch and breakfast as possible. He will need to continue to work with physical therapy with anticipation of possibly going to Swing Bed once medically stable enough versus going to a long-term rehab facility. Until that point, we will continue to monitor the patient closely and treat appropriately. Once the patient is discharged, he will need close followup with his primary care physician, Dr. Ortega, and his pain management physician, Dr. Hernandez, at the [facility] in [place]. #[phone] MTDD
[2016-12-17] MEDS: KCL 20 MEQ/NS 1,000 ML IVS PRN (13:41)
[2016-12-17] MEDS ORDERED: cefTRIAXone SODIUM 1 GM VIAL ONE (15:42)
[2016-12-17] MEDS ORDERED: SODIUM CHL 0.9% 50ML MIN-BAG+ 50 ML IVPB ONE (15:42)
[2016-12-17] MEDS: cefTRIAXone SODIUM 1 GM in SODIUM CHL 0.9% 50ML MIN-BAG+ 50 ML IVPB SCH (15:49)
[2016-12-17] MEDS: CHOLECALCIFEROL 2,000 IU TAB PO SCH (21:10)
[2016-12-17] MEDS: MULTIPLE VITAMINS W/ MINERALS 1 EA TAB PO SCH (21:10)
[2016-12-17] MEDS: ALPRAZolam 0.5 MG TAB PO SCH (21:10)
[2016-12-17] MEDS: ASPIRIN EC 81 MG TAB PO SCH (21:10)
[2016-12-17] MEDS: TAMSULOSIN 0.4 MG CAP PO SCH (21:10)
[2016-12-17] MEDS: ENOXAPARIN SODIUM 40 MG/0.4 ML SYG SUBCU SCH (21:10)
[2016-12-17] MEDS: PRIMIDONE 50 MG TAB PO SCH (21:10)
[2016-12-18] MEDS: KCL 20 MEQ/NS 1,000 ML IVS PRN ×2 (03:00→18:12)
[2016-12-18] MEDS: GABAPENTIN 100 MG CAP PO SCH ×2 (06:53→21:47)
--- NOTE | 2016-12-18 07:05 | RAD ---
EXAM DESCRIPTION: Chest,2 Views CLINICAL HISTORY: rll pneumonia COMPARISON: December 17, 2016 FINDINGS: The cardiomediastinal silhouette is unremarkable. There is mild blunting of the costophrenic angles bilaterally. Interstitial and hazy alveolar opacity is noted in the right lung base, improved from yesterday but suggestive of resolving pneumonia. The lungs appear hyperinflated, likely related to underlying COPD. No pneumothorax or fracture. There is no pneumothorax or acute fracture. IMPRESSION: Abnormal appearance of the right lung base, improved from yesterday. Differential considerations include resolving pneumonia. COPD. Tiny bilateral pleural effusions, nonspecific. Electronically signed by: Angus Molina MD 12/18/2016 7:03 AM CDT [facility]station: [id number]
[2016-12-18] MEDS: INSULIN LISPRO 100 UNITS/ML PEN SUBCU SCH ×4 (08:17→21:00)
[2016-12-18] MEDS: POTASSIUM CHLORIDE 10 MEQ TAB PO SCH (08:17)
[2016-12-18] MEDS: PANTOPRAZOLE SODIUM IV 40 MG VIAL IV SCH (08:19)
[2016-12-18] MEDS ORDERED: SODIUM CHLORIDE 0.9% 250ML 250 ML ONE (08:28)
[2016-12-18] MEDS ORDERED: SODIUM CHL 0.9% 50ML MIN-BAG+ 50 ML IVPB ONE (08:29)
[2016-12-18] MEDS ORDERED: cefTRIAXone SODIUM 1 GM VIAL ONE (08:29)
[2016-12-18] MEDS ORDERED: AZITHROMYCIN IV 500 MG VIAL IVPB ONE (08:30)
[2016-12-18] MEDS: IPRATROPIUM/ALBUTEROL 3 ML VIAL NEB SCH ×4 (08:45→20:42)
[2016-12-18] MEDS: AZITHROMYCIN IV 500 MG in SODIUM CHLORIDE 0.9% 250ML 250 ML IVPB SCH (08:48)
[2016-12-18] MEDS: MEGESTROL ACETATE 40 MG TAB PO SCH (08:49)
[2016-12-18] MEDS: FUROSEMIDE 40 MG TAB PO SCH (08:49)
[2016-12-18] MEDS: predniSONE 20 MG TAB PO SCH (08:49)
[2016-12-18] MEDS: NICOTINE PATCH 14 MG TD SCH (08:49)
[2016-12-18] MEDS: MORPHINE ER 15 MG TAB PO SCH ×3 (08:49→21:46)
[2016-12-18] MEDS: METHOCARBAMOL 750 MG TAB PO SCH ×2 (08:50→21:46)
--- NOTE | 2016-12-18 16:06 | PN ---
DATE: 12/18/16 SUBJECTIVE: The patient is currently on the third day of having received treatment for a fairly significant right lower lobe pneumonia with chronic obstructive pulmonary disease exacerbation. He is now able to ambulate a little bit with assistance with special attention to avoid falls. He is still very weak. He is quite alert and the family is present to assist with his ongoing care as best they can, still with chronic low back pain. His primary care physician is in the [place] [facility]. The patient lives in [place]. Physical therapy feels the patient would benefit from Swing Bed rehabilitation which is initiated currently while still undergoing Med/Surg treatment. OBJECTIVE: VITAL SIGNS: Afebrile. Pulse 83. Blood pressure 114/64. Pulse oximetry 96% on nasal cannula. Weight 68.8 kg. GENERAL: The patient is quite alert, though physically somewhat weak. He is able to stand up from a chair with help using his arms. Special attention to avoid falls encouraged to continue. The patient is well oriented. LUNGS: Diminished breath sounds especially in the right base with a few rhonchi noted. HEART: Tones are somewhat distant. ABDOMEN: Soft with fairly good bowel tones. EXTREMITIES: No significant pedal edema. NEUROLOGIC: The patient is otherwise awake and alert. LABORATORY: White count 7,300, hemoglobin 9.8. Chemistries show potassium 4.5 , BUN 20, creatinine 1.23, fasting glucose 94. Blood cultures negative thus far. X-ray of the chest performed earlier today shows some further clearing of the previously described right lower lobe infiltrative pneumonia process. ASSESSMENT: 1. Acute right lower lobe pneumonia, probable community acquired with cultures pending and the patient currently on ceftriaxone and azithromycin. 2. Initial respiratory alkalosis with hyperventilation evident, probably secondary to chronic obstructive pulmonary disease exacerbation, bronchitis and underlying pneumonia requiring ongoing fluid and antibiotic support. 3. Renal insufficiency, showing some improvement. 4. Mild hyponatremia, showing improvement. 5. Moderate dehydration, requiring fluid supplementation. 6. Chronic tobacco abuse. 7. Chronic lower back pain on multiple opioids and muscle relaxants. 8. History of prostatic cancer having been treated with cryotherapy in 2009. 9. Hypertension. 10. Severe scoliosis, symptomatic with kyphosis. 11. Severe generalized weakness secondary to worsening bronchitis with associated community-acquired pneumonia and chronic obstructive pulmonary disease contributing. 12. History of right upper lobe pulmonary nodule noted on CT measured at 5 mm, noncalcified, requiring further close followup in the clinic. 13. Chronic back pain with exacerbation, aggravated by deconditioning and weakness with no evidence of an acute compression fracture at this time. PLAN: The patient has significant cold intolerance and the TSH level will be looked at. We will ask respiratory to continue with ambulation studies to more fully evaluate requirements for oxygen. Fall prevention is important. Social Service to work with the family regarding their request for Swing Bed and/or rehab facility continued treatment with final insurance approval within the next 2 to 3 days. We will continue physical therapy in the meantime and antibiotic therapy to be continued as well. Reevaluation in the morning. #[id number] [facility]
[2016-12-18] MEDS: cefTRIAXone SODIUM 1 GM in SODIUM CHL 0.9% 50ML MIN-BAG+ 50 ML IVPB SCH (16:49)
[2016-12-18] MEDS ORDERED: PROMETHAZINE HCL INJ 12.5 MG in SODIUM CHLORIDE 0.9% 50ML 50 ML IVPB PRN (21:23)
[2016-12-18] MEDS ORDERED: PROMETHAZINE HCL INJ 25 MG/ML VIAL ONE (21:30)
[2016-12-18] MEDS ORDERED: SODIUM CHLORIDE 0.9% 50ML 50 ML ONE (21:30)
[2016-12-18] MEDS: CHOLECALCIFEROL 2,000 IU TAB PO SCH (21:46)
[2016-12-18] MEDS: ASPIRIN EC 81 MG TAB PO SCH (21:46)
[2016-12-18] MEDS: MULTIPLE VITAMINS W/ MINERALS 1 EA TAB PO SCH (21:46)
[2016-12-18] MEDS: ENOXAPARIN SODIUM 40 MG/0.4 ML SYG SUBCU SCH (21:46)
[2016-12-18] MEDS: ALPRAZolam 0.5 MG TAB PO SCH (21:46)
[2016-12-18] MEDS: TAMSULOSIN 0.4 MG CAP PO SCH (21:47)
[2016-12-18] MEDS: PRIMIDONE 50 MG TAB PO SCH (21:47)
[2016-12-19] MEDS: IV SET AND CAP CHANGE INJ INJ SCH (00:31)
[2016-12-19] MEDS: GABAPENTIN 100 MG CAP PO SCH ×2 (06:46→20:44)
[2016-12-19] MEDS: PANTOPRAZOLE SODIUM TAB 40 MG PO SCH (06:46)
[2016-12-19] MEDS: KCL 20 MEQ/NS 1,000 ML IVS PRN ×2 (07:28→21:07)
[2016-12-19] MEDS ORDERED: AZITHROMYCIN 250 MG TAB PO ONE (08:01)
[2016-12-19] MEDS: MEGESTROL ACETATE 40 MG TAB PO SCH (08:30)
[2016-12-19] MEDS: FUROSEMIDE 40 MG TAB PO SCH (08:30)
[2016-12-19] MEDS: NICOTINE PATCH 14 MG TD SCH (08:30)
[2016-12-19] MEDS: METHOCARBAMOL 750 MG TAB PO SCH ×2 (08:30→20:44)
[2016-12-19] MEDS: POTASSIUM CHLORIDE 10 MEQ TAB PO SCH (08:30)
[2016-12-19] MEDS: MORPHINE ER 15 MG TAB PO SCH ×3 (08:30→20:44)
[2016-12-19] MEDS: predniSONE 20 MG TAB PO SCH (08:32)
[2016-12-19] MEDS: INSULIN LISPRO 100 UNITS/ML PEN SUBCU SCH ×4 (08:41→21:05)
[2016-12-19] MEDS ORDERED: AZITHROMYCIN 250 MG TAB PO SCH (09:00)
[2016-12-19] MEDS: IPRATROPIUM/ALBUTEROL 3 ML VIAL NEB SCH ×4 (09:44→20:21)
[2016-12-19] MEDS ORDERED: ALPRAZolam 0.25 MG TAB PO PRN (13:48)
--- NOTE | 2016-12-19 13:59 | US ---
EXAM DESCRIPTION: Gall Bladder CLINICAL HISTORY: 76 years Male, abd pain with Nausea COMPARISON: None. FINDINGS: Right upper quadrant sonography demonstrates the liver measuring 16 cm in length consistent with borderline hepatomegaly with normal echogenicity in homogeneity without cystic or solid mass. The gallbladder is normally distended without evidence of stones or acoustic shadowing. Gallbladder wall is upper normal in thickness at 3 mm. Pericholecystic edema is not apparent. Common bile duct is prominent at 8 mm in diameter without evidence of intrahepatic dilatation. Correlation with liver function studies is recommended. No right upper quadrant ascites is noted. Right kidney was not evaluated. Pancreas is poorly visualized with no gross abnormality noted or fluid collection in the region of the retroperitoneum. IMPRESSION: 1. Borderline or mild hepatomegaly without focal mass. 2. Normal-appearing gallbladder with gallbladder wall upper range of normal and mildly prominent common bile duct at 8 mm. Correlation with serum bilirubin and liver function studies recommended. No definite stones identified. Electronically signed by: Billy Carson MD 12/19/2016 1:57 PM CDT
[2016-12-19] MEDS: CITALOPRAM HBR 20 MG TAB PO SCH (14:09)
--- NOTE | 2016-12-19 15:13 | PN ---
DATE: 12/19/16 SUBJECTIVE: The patient states he is feeling much improved compared to last night. He had significant abdominal pain with nausea and for this reason, an ultrasound of his gallbladder was performed today with results pending. The family has noted that when he is given the Xanax at bedtime, his significant anxiety is significantly removed. They feel that maybe one or two of the Xanax per day may be sufficient to help with ongoing symptoms. The patient is eating better today. OBJECTIVE: VITAL SIGNS: Afebrile. Blood pressure 137/75. Pulse oximetry 99% on room air. LUNGS: Diminished breath sounds. HEART: Regular. ABDOMEN: Soft at this time with no rebound tenderness. Abdominal gallbladder ultrasound is being performed and results pending. NEUROLOGIC: The patient is awake, alert, and communicative. Much less abdominal pain noted today, especially after what appeared to a panic episode may have contribute to a lot of his symptoms last evening with the associated nausea. He has had these in the past. He has taken Xanax, especially at bedtime which helps him significantly in resting and the family feels that he may feel better with some Xanax on a p.r.n. basis as well. Their physician in [place] is unable to provide controlled substance prescriptions, so they are going to work specifically on trying to find a source. They also stopped the Celexa a few weeks ago and he is not feeling any better and, in fact, feels worse. ASSESSMENT: 1. Acute right lower lobe pneumonia, showing some radiographic improvement, currently on ceftriaxone and azithromycin, repeat in the morning. 2. Initial respiratory alkalosis with hyperventilation, showing some improvement with ongoing treatment. 3. Renal insufficiency, showing improvement with fluid hydration. 4. Mild hyponatremia, improved. 5. Moderate dehydration, fluid supplementation provided. 6. Chronic tobacco abuse, encouraged to stop. 7. Chronic lower back pain on multiple opioids and muscle relaxants. 8. History of prostatic cancer having been treated with cryotherapy in 2009. 9. History of hypertension. 10. Severe scoliosis, symptomatic with kyphosis. 11. Severe generalized weakness secondary to worsening bronchitis with associated community-acquired pneumonia, chronic obstructive pulmonary disease and general deconditioning. 12. History of right upper lobe pulmonary nodule noted on CT measured at 5 mm, noncalcified, requiring further followup in the clinic. 13. Chronic back pain with exacerbation, aggravated by deconditioning and weakness with no evidence of an acute compression fracture at this time. 14. Abdominal pain with associated nausea, possibly related to underlying panic disorder with associated depression. PLAN: We will re-institute Celexa and provide Xanax 0.25 mg up to twice a day in addition on a p.r.n. basis to the Xanax that he takes at 0.5 at bedtime. Await decision by tomorrow or regarding [place] [facility] capability to get him stronger to the point that he would safely be able to return home. Close observation necessary. Need arrangements to be able to be helped by a clinic to renew some of the medications the patient is requiring. #[id number] [facility]
[2016-12-19] MEDS ORDERED: SODIUM CHL 0.9% 50ML MIN-BAG+ 50 ML IVPB ONE (16:11)
[2016-12-19] MEDS ORDERED: cefTRIAXone SODIUM 1 GM VIAL ONE (16:11)
[2016-12-19] MEDS: cefTRIAXone SODIUM 1 GM in SODIUM CHL 0.9% 50ML MIN-BAG+ 50 ML IVPB SCH (16:18)
[2016-12-19] MEDS: CHOLECALCIFEROL 2,000 IU TAB PO SCH (20:43)
[2016-12-19] MEDS: TAMSULOSIN 0.4 MG CAP PO SCH (20:44)
[2016-12-19] MEDS: ASPIRIN EC 81 MG TAB PO SCH (20:44)
[2016-12-19] MEDS: MULTIPLE VITAMINS W/ MINERALS 1 EA TAB PO SCH (20:44)
[2016-12-19] MEDS: ALPRAZolam 0.5 MG TAB PO SCH (20:44)
[2016-12-19] MEDS: ENOXAPARIN SODIUM 40 MG/0.4 ML SYG SUBCU SCH (20:45)
[2016-12-20] MEDS: PANTOPRAZOLE SODIUM TAB 40 MG PO SCH (06:05)
[2016-12-20] MEDS: GABAPENTIN 100 MG CAP PO SCH (06:05)
[2016-12-20] MEDS: INSULIN LISPRO 100 UNITS/ML PEN SUBCU SCH (06:50)
--- NOTE | 2016-12-20 07:50 | RAD ---
EXAM DESCRIPTION: Chest,2 Views CLINICAL HISTORY: RLL Pneumonia COMPARISON: December 18, 2016 TECHNIQUE: PA/lateral FINDINGS: The mid and upper lung matute are clear with mild atelectasis and/or minimal pleural fluid now evident at the left lung base with a slightly worse appearance than seen two days earlier. Definite deterioration at the right lung base also noted with worsening atelectasis or basilar pneumonitis. Significant pleural fluid is not apparent. The heart is normal in size and shape with no evidence of vascular congestion. The jorge and mediastinum demonstrate normal contours. The bony spine and chest wall is normal for age in appearance. IMPRESSION: Deteriorating lung bases with developing right basilar atelectasis/pneumonia and minimal stranding and density in the medial left lung base with a tiny amount of pleural fluid. Electronically signed by: Billy Carson MD 12/20/2016 7:49 AM CDT
[2016-12-20] MEDS: IPRATROPIUM/ALBUTEROL 3 ML VIAL NEB SCH (08:40)
[2016-12-20] MEDS: POTASSIUM CHLORIDE 10 MEQ TAB PO SCH (08:50)
[2016-12-20] MEDS: CITALOPRAM HBR 20 MG TAB PO SCH (08:55)
[2016-12-20] MEDS: predniSONE 20 MG TAB PO SCH (08:55)
[2016-12-20] MEDS: NICOTINE PATCH 14 MG TD SCH (08:56)
[2016-12-20] MEDS: MEGESTROL ACETATE 40 MG TAB PO SCH (08:56)
[2016-12-20] MEDS: MORPHINE ER 15 MG TAB PO SCH (08:56)
[2016-12-20] MEDS: FUROSEMIDE 40 MG TAB PO SCH (08:56)
[2016-12-20] MEDS: METHOCARBAMOL 750 MG TAB PO SCH (08:56)
[2016-12-20] MEDS: KCL 20 MEQ/NS 1,000 ML IVS PRN (08:58)
[2016-12-20 09:54] VITALS: BP 127/63; TEMP 99.4
[2016-12-20 10:31] VITALS: O2SAT 95
--- NOTE | 2016-12-23 12:06 | DS ---
SUPERVISING PHYSICIAN: Billy Aceves M.D. DISCHARGE DIAGNOSIS: 1. Right lower lobe pneumonia community acquired having shown radiographic improvement after being on ceftriaxone and azithromycin prior to discharge. Final culture results are still pending at time of discharge. Preliminary shows gram- negative rods. 2. Initially admitted with respiratory alkalosis with hyperventilation improved after initiation of treatment. 3. Renal insufficiency, showing improvement with IV fluids. 4. Mild hyponatremia, improved. 5. Moderate dehydration resolved with fluid supplementation. 6. Chronic tobacco abuse, encouraged to stop smoking. 7. Chronic lower back pain on multiple opioids and muscle relaxants. 8. History of prostatic cancer having been treated with cryotherapy in 2009. 9. History of hypertension. 10. Severe scoliosis, symptomatic with kyphosis. 11. Generalized weakness, severe secondary to worsening bronchitis with associated community-acquired pneumonia and chronic obstructive pulmonary disease and general deconditioning requiring Swing Bed admission. 12. History of right upper lobe pulmonary nodule noted on CT measured at 5 mm, noncalcified, requiring further followup at time of discharge. 13. Chronic back pain with exacerbation, aggravated by deconditioning and weakness with no evidence of an acute compression fracture at time of admission. 14. Abdominal pain while admitted to Acute Care with some nausea felt to be related to underlying panic disorder and associated depression, resolved with antidepressants and Benzodiazepines. HISTORY OF PRESENT ILLNESS: Mr. Platt is a 76 year-old male patient that was admitted on 12/15/16 through the Emergency Room after his family brought him to the Emergency Department noting that he had been having some generalized weakness and worsening lower back pain. The family noted that he had been having some fever and increased productive cough several days prior to admission. In fact, the patient had been seen in the Emergency Department 2 days previously and was diagnosed with bronchitis. He was discharged home at that time but continued to progressively worsen over the last several days prior to admission to where he was so weak on the morning of admission, he was unable to ambulate. The patient normally is ambulatory and drives. The patient complained of back pain more intense than his normal chronic back pain which typically is controlled with p.o. medications at home. Laboratory studies in the Emergency Department show that he had a white count of 10.8, hemoglobin 11.8 and hematocrit 34.9, but initially did not have a left shift. Blood gas analysis showed an elevated pH of 7.49 with a low PCO2 of 31 but PO2 was normal at 100 with saturations of 99.3% on room air at rest. Chemistries were noted with a mildly low sodium at 134 with elevated renal function with a BUN of 20 and creatinine of 1.32. Liver functions, lactic acid and cardiac enzymes were all within normal limits. Radiographic studies were completed in the Emergency Department prior to admission and a chest x-ray single view per radiology interpretation noted tr was a liner interstitial thickening in the right lower lobe that was previously seen on comparison on 12/13/16 with some slight improvement from previous suggesting atelectasis or interstitial infiltrate. There was also note of a 7 mm pulmonary nodule in the right upper lobe that was seen previously on 12/13/16. Given the fact that the patient had been treated previously for bronchitis in the Emergency Department and had failed to respond to outpatient treatment plan, and on admission was showing clinical decline, the patient was admitted to the Medical/Surgical floor for definitive treatment and evaluation with concerns for developing right lower lobe pneumonia community acquired as the patient has a significant history of chronic obstructive pulmonary disease and tobacco abuse. Blood cultures were completed in the Emergency Department prior to admission and antibiotic therapy was initiated with parenteral antibiotics to include Rocephin and Azithromycin. The patient was admitted in stable condition to the Medical/Surgical floor. LABORATORY: CBC on admission showed white count 10.8, at discharge was 6.4. Hemoglobin initially was 11.8, at discharge had decreased somewhat to 9.6, hematocrit as well was down to 28.7 from 34.9 at time of admission. Platelet count was stable, at discharge was 289,000. Differential did show a left shift , but this resolved prior to discharge. Blood gas analysis on room air showed a pH of 7.49 with PCO2 of 31, PO2 of 100, bicarb 23.2 with saturation of 99.3% on again room air with a carboxyhemoglobin of 2.6 and methemoglobin of 1.7%. General chemistries on admission did show hyponatremia with sodium of 134, potassium 4.2, BUN initially was 20, creatinine 1.32. After initiation of therapy and through the entire hospitalization stay at time of discharge the patient's chemistries had normalized and at discharge, electrolytes were within normal limits with potassium 4.2, sodium 139. Blood sugars ranged from 87 to 248. Liver functions on admission showed to be within normal limits. Troponin was less than 0.02 with calcium 9.4, lactic acid 1.0, magnesium 2.9. Urinalysis showed microscopic with 3 to 5 WBCs, otherwise urinalysis was within normal limits. MICROBIOLOGY: He had 2 sets of blood cultures that remained negative at 5 days. He had a sputum culture that shows gram-negative rods, preliminary Enterococcus species, but was sent out for confirmation to reference lab and is pending at time of discharge. RADIOLOGY: In the Emergency Department, he did have a chest x-ray prior to admission and per radiology interpretation there was a question of a small right pleural effusion. The left lung was clear. There was note of a 7 mm pulmonary nodule in the right upper lobe which was again seen on previous films. A lumbar CT was completed and per radiology interpretation there was evidence of prior lumbar fusion, scoliosis, diffuse degenerative changes of the lumbar spine. This was followed-up with a chest CT with contrast and per radiology interpretation showed a small right pleural fluid collection and increased opacity in the right lower lung that may represent atelectasis. There is also note again of a 5 mm non-calcified right pulmonary nodule. Recommend continued outpatient followup. He had additional chest x-rays continued through the hospitalization. Final chest x-ray on date of discharge per radiology interpretation showed deterioration of the lung base with developing right basilar atelectasis, possible pneumonia with minimal strand density of the medial left lung base with tiny amount of pleural fluid. He also had a gallbladder ultrasound and per radiology interpretation there was borderline mild hepatomegaly without focal mass. There was as normal-appearing gallbladder with gallbladder wall upper range of normal, mildly prominent common bile duct at 8 mm. No definite stones were identified. HOSPITAL COURSE: Mr. Platt was admitted as noted on 12/15/16 from the Emergency Department with developing worsening bronchitis and concerns for right lower lobe pneumonia. He was initiated on antibiotics as noted with Rocephin and Azithromycin. Clinically he did show good progression but continued to show significant deconditioning and weakness. Physical Therapy evaluation recommended the patient would benefit from Swing Bed for continued inpatient rehabilitation efforts. He did have an episode of right upper quadrant pain. This was followed-up with the ultrasound that revealed no acute findings. It was felt that this was possibly related to some anxiety as he does wear CPAP at night. He was given pain medicine and anti-anxiety at which time the pain resolved and did not reoccur prior to discharge. On the morning of discharge, he felt that he clinically progressed well enough to be discharged to an inpatient facility for continued rehabilitation to include Swing Bed. The patient had voiced that he would like to go to Swing Bed at [place], therefore arrangements were made to go to Swing Bed at [place], at the time, the patient was clinically stable. PLAN: The patient is discharged to be transferred to [facility]ing Bed at [place] at [facility] under the care of Dr. Patel. The patient was transferred by private vehicle. He was instructed to resume his medications as prior to hospitalization and to start on new medications as directed. Diet was an 1800 calorie ADA. Activity as per Physical Therapy on Swing Bed. Again, the patient was encouraged to continue with smoking cessation. Condition at discharge and transfer was stable and improved. #[id number] [facility]
== END 2016-12-20 11:30 | disposition swing bed (61) | DRG 190 ==
LOC: ER 10:53 → MS 15:29 → OBSVTOIN 15:29
PROVIDERS: ADMIT Nurse Practitioner Family; ATTEND Nurse Practitioner Family
PROC: BB24YZZ Computerized Tomography (CT Scan) of Bilateral Lungs using Other Contrast (ICD-10-PCS; principal; 2016-12-15)
DX: J44.0 Chronic obstructive pulmonary disease with (acute) lower respiratory infection (principal); J18.9 Pneumonia, unspecified organism; E87.3 Alkalosis; E87.1 Hypo-osmolality and hyponatremia; N28.9 Disorder of kidney and ureter, unspecified; E86.0 Dehydration; G89.29 Other chronic pain; M54.5 Low back pain; I10 Essential (primary) hypertension; M41.9 Scoliosis, unspecified; M40.209 Unspecified kyphosis, site unspecified; R91.1 Solitary pulmonary nodule; F41.0 Panic disorder [episodic paroxysmal anxiety]; F32.9 Major depressive disorder, single episode, unspecified; M46.96 Unspecified inflammatory spondylopathy, lumbar region; G25.81 Restless legs syndrome; F17.210 Nicotine dependence, cigarettes, uncomplicated; Z79.891 Long term (current) use of opiate analgesic; Z85.46 Personal history of malignant neoplasm of prostate; Z79.82 Long term (current) use of aspirin; Z79.899 Other long term (current) drug therapy